=== PATIENT | male | born 1970 | race Caucasian/White ===

== ENCOUNTER 2017-12-12 09:13 | Emergency (ER) | payer OTHER ==
[~2017-12-12] VITALS: Ht 165.1 cm; Wt 149.7 kg
[~2017-12-12 09:13] MED LIST: AMLODIPINE BESY10 M1 PO; ANTIVERT25 MG PO; AZOR 10-40 MG1 EACH PO; IBUPROFEN800 MG PO; LASIX20 M1 PO; OMEPRAZOLE40 M1 PO; ULTRAM50 M1 PO; ZOFRAN ODT4 M1 SL
[2017-12-12 10:27] LABS: ABSOLUTE BASOPHIL COUNT 0 /CUMM (0.0-0.2); ABSOLUTE EOSINOPHIL COUNT 0.1 /CUMM (0.0-0.7); ABSOLUTE GRANULOCYTE CT 3.4 /CUMM (1.4-6.5); ABSOLUTE LYMPH COUNT 0.9 /CUMM (1.2-3.4); ABSOLUTE MONOCYTE COUNT 0.4 /CUMM (0.10-0.60); BASOPHIL % 0.5 % (0.0-2.0); EOSINOPHIL % 2.3 % (0-5); GRANULOCYTE % 70.5 % (42.2-75.2); HEMATOCRIT 47.5 % (42-52); MEAN CORPUSCULAR HGB 29.9 PG (27.0-31.0); MEAN CORPUSCULAR HGB CONC 33.5 G/DL (33.0-37.0); MEAN CORPUSCULAR VOLUME 89.4 FL (80.0-94.0); MEAN PLATELET VOLUME 8.9 FL (7.4-10.4); PLATELET COUNT 210 /CUMM (130-400); RBC DISTRIBUTION WIDTH 13.5 % (11.5-14.5); RED BLOOD CELL CT 5.31 /CUMM (4.70-6.10); WHITE BLOOD CELL COUNT 4.8 /CUMM (4.8-10.8)
[2017-12-12 11:20] LABS: PT 11.5 SEC (9.4-12.5); PTT 31 SEC (25-37)
--- NOTE | 2017-12-12 11:42 | ED GI/GU/ABDOMINAL COMPLAINT ---
History of Present Illness General Chief Complaint: General Adult Stated Complaint: ABNORMAL SCAN Source: patient Exam Limitations: no limitations Vital Signs & Intake/Output Vital Signs & Intake/Output Vital Signs Date Time Temp Pulse Resp B/P B/P Pulse O2 O2 Flow FiO2 Mean Ox Delivery Rate 12/12 0931 97.1 71 20 143/92 94 Room Air Allergies Coded Allergies: No Known Drug Allergies (Intermediate, NONE 12/12/17) Reconcile Medications Amlodipine Besylate 10 MG TABLET 1 TAB PO DAILY HEART (Reported) Triage Note: C/O RUQ ABDOMINAL PAIN X 1 MONTH, ADMITTED FOR GASTRITIS, FOLLOWED UP WITH DR. LEE. HAD OUT PT NUCLEAR STUDY ON 12/09, WAS TOLD GB IS NON-FUNCTIONING. DR. LEE ADVISED PT TO GO TO ER FOR SURGICAL CONSULT. Triage Nurses Notes Reviewed? yes HPI: 47-year-old white male who was sent in referral from Dr. Huang next office to see Dr. Wallace after an abnormal HIDA scan on . Patient reports that he has been suffering abdominal pain in the right upper quadrant which has been postprandial for approximately 1 month and was seen here where a workup was unremarkable. He was then referred to Dr. Huang who performed a HIDA scan which was found to be abnormal causing him to refer the patient here. The patient continues to complain of moderate right upper quadrant abdominal pain. He denies any fever, chills, jaundice, chest pain, shortness of breath, nausea, vomiting, or diarrhea. He has not had anything to eat or drink this morning Past History Travel History Traveled to [place] past 21 day No Medical History Any Pertinent Medical History? see below for history Neurological: vertigo EENT: Ocular lymphoma Cardiovascular: hypertension Respiratory: NONE Gastrointestinal: ULCER HEMORROIDS GALL STONES Hepatic: NONE Renal: nephrolithiasis Musculoskeletal: NONE Psychiatric: NONE Endocrine: NONE Blood Disorders: NONE Cancer(s): NONE History of MRSA: No History of VRE: No History of CDIFF: No Surgical History Surgical History: non-contributory, N Psychosocial History Who do you live with Patient/Self What is your primary language Bel[place]ian Tobacco Use: Never used ETOH Use: denies use Family History Hx Contributory? No Review of Systems Review of Systems Constitutional: Reports: see HPI. Denies: no symptoms, chills, diaphoresis, fever, malaise, weakness, unexplained weight loss. All Other Systems: Reviewed and Negative Physical Exam Physical Exam General Appearance: well developed/nourished, awake, mild distress Head: atraumatic, normal appearance Eyes: Bilateral: normal appearance, PERRL, EOMI, normal inspection. Ears, Nose, Throat, Mouth: hearing grossly normal, moist mucous membrane Neck: normal inspection, supple, full range of motion, normal alignment Respiratory: normal breath sounds, chest non-tender, no respiratory distress, quiet respiration, lungs clear Cardiovascular: regular rate/rhythm Gastrointestinal: soft, tenderness (RUQ (mild)) Back: normal inspection, normal range of motion Extremities: normal range of motion Core Measures ACS in differential dx? No Sepsis Present: No Sepsis Focused Exam Completed? No Progress Differential Diagnosis: appendicitis, biliary colic, cholecystitis, hepatitis Plan of Care: Orders Procedure Date/time Status Add-on Test (ER Only) 12/12 1103 Active PARTIAL THROMBOPLASTIN TIME 12/12 1016 Complete PROTHROMBIN TIME 12/12 1016 Complete LIPASE 12/12 928 Complete LACTIC ACID 12/12 928 Complete HEPATIC FUNCTION PANEL 12/12 928 Complete CBC WITHOUT DIFFERENTIAL 12/12 928 Complete BASIC METABOLIC PANEL 12/12 928 Complete Laboratory Tests 12/12/17 1016: Anion Gap 9, Estimated GFR > 60, BUN/Creatinine Ratio 10.0, Glucose 113 H, Lactic Acid 1.2, Calcium 9.3, Total Bilirubin 0.4, Direct Bilirubin 0, AST 22, ALT 34, Alkaline Phosphatase 74, Total Protein 7.1, Albumin 4.1, Lipase 207, PT 11.5, INR 1.05, APTT 31, CBC w Diff NO MAN DIFF REQ, RBC 5.31, MCV 89.4, MCH 29.9, MCHC 33.5, RDW 13.5, MPV 8.9, Gran % 70.5, Lymphocytes % 19.4 L, Monocytes % 7.3, Eosinophils % 2.3, Basophils % 0.5, Absolute Granulocytes 3.4, Absolute Lymphocytes 0.9 L, Absolute Monocytes 0.4, Absolute Eosinophils 0.1, Absolute Basophils 0 Initial ED EKG: none Comments: Dr. Wallace paged for consult Dr. Wallace return the call and recommended that the patient be discharged at this time since there is no signs of toxicity or acute cholecystitis and he will follow the patient in the office for planned outpatient procedure. Departure Departure Time of Disposition: 2 Disposition: HOME OR SELF CARE Condition: Stable Clinical Impression Primary Impression: Abnormal biliary HIDA scan Referrals: Luis TENORIO,Garrick Yanez (PCP/Family) Rodrigo TENORIO,Perry Tanner Additional Instructions: Please call Dr. Wallace today to arrange your surgery. Return here immediately if any fever, chills, jaundice, intractable pain, or persistent vomiting. Avoid fatty foods. Departure Forms: Customer Survey General Discharge Information RELEASE- WORK
[2017-12-12 12:08] VITALS: BP 144/92
== END 2017-12-12 12:07 ==
LOC: ERH 09:13
PROVIDERS: Emergency Medicine; Physician Assistant
DX: R93.2 Abnormal findings on diagnostic imaging of liver and biliary tract (principal); R10.11 Right upper quadrant pain; I10 Essential (primary) hypertension